=== PATIENT | male | born 1985 | race Caucasian/White ===

== ENCOUNTER → 2017-03-22 | Day surgery (SDC) | payer OTHER ==
[~2017-03-22] VITALS: Ht 175.3 cm; Wt 68.0 kg
[~2017-03-22] MED LIST: ACET325T9 PO; ALBU2.5V5 NEB; BUDE10.2 IH; BUPIVACAINE MPF 0.5% 30 ML VIAL. ONE; CETI10TA22 PO; DEXAMETHASONE SOD PHOS 20 MG/5 ML VIAL. ONE; FAMOTIDINE 20 MG/2 ML VIAL ONE; FLUT9.9S NS; HYDROCORTISONE SOD SUCC/PF 100 MG/2 ML VIAL. ONE; HYDROmorphone 2 MG/ML VIAL IV PRN; IV RINGERS,LACTATED 1000ML 1,000 ML IV SCH; LIDOCAINE 1% 20 ML VIAL. ONE; LIDOCAINE 1% PF 2 ML VIAL. ID PRN; LIDOCAINE 2% PF Vial for OR 5 ML VIAL. ONE; MELO15TA6 PO; MELOXICAM 7.5 MG TABLET PO PRN; MIDAZOLAM HCL/PF 2 MG/2 ML VIAL. ONE; MONT10TA9 PO; MORPHINE SULFATE 2 MG/ML DISP.SYRIN. IV PRN; ONDANSETRON PF 4 MG/2 ML VIAL. IV PRN; ONDANSETRON PF 4 MG/2 ML VIAL. ONE; PANT40TA5 PO; PRED-220 PO; PROAIR RESPICL90 MCG IH; PROCHLORPERAZINE 10 MG/2 ML VIAL. IV PRN; PROPOFOL 20 ML IV ONE; SEVOFLURANE 31 TO 60 MINUTES. IH ONE; TRET20CR13 TP; [UNRECOGNIZED DRUG - CODE] TP; fentaNYL PF VIAL 100 MCG/2 ML VIAL IV PRN; fentaNYL PF VIAL 100 MCG/2 ML VIAL ONE
--- NOTE | 2017-03-22 07:21 | DISCH ---
DISCHARGE INSTRUCTIONS Condition on Discharge Condition on Discharge: Stable Activity After Discharge Activity Instructions for Disc: Other, see below Other activity instructions: wiggle fingers Bathing Instructions: Shower-keep dressing dry Weight Bearing Status after Di: As tolerated Diet after Discharge Diet after Discharge: Regular Wound Incision Care Wound/Incision Care: Ice to area for comfort, Keep wound/cast CDI, Keep wound elevated Other wound/incision instructi: ok to change dressing after [address] after DC Call your doctor for: Concerns you may have Follow-Up Follow up with: [facility]ist in 2 days CHRISTIANO SOLORZANO II, MD Mar 22, 2017 07:21
--- NOTE | 2017-03-22 07:24 | PDOC4 ---
Operative Note Operative Note Date of surgery: 03/22/2017 Preoperative diagnosis: Painful hardware right hand after scaphoid fracture fixation Postoperative diagnosis: Same Procedure performed: Right hand hardware removal Surgeon: Tigist Anesthesia: Gen. Findings: Stable fracture. Complications: Next Blood loss: 2mL Tourniquet time: 17 min Reason for procedure: Patient is a 32-year-old gentleman who underwent scaphoid fracture fixation several months ago. His fracture pain had resolved. I felt that his fracture had united radiographically. We discussed removing the hardware which was causing him local symptoms. He wished to proceed. Next Description of procedure: Patient was greeted in the preoperative area by myself for the correct extremity was marked and verified. Taken back to the operative suite and his antibiotics were started and row. Once in the operating room, he was transferred gently supine to the OR table and secured the bed with all pressure points padded. Underwent successful induction of a general anesthetic. A nonsterile tourniquet was applied to his right upper extremity. We then proceeded to prep and drape right upper extremity in her usual sterile fashion and conducted our standard preoperative timeout. Esmarch was used to exsanguinate the extremity and tourniquet was insufflated to 250 mmHg. I brought in C-arm to localize the hardware which I was also able to palpate. I made a skin incision through his prior incision and dissected subcutaneous tissue with tenotomies until identified the ends of the hardware and remove these 3 pins, using a pliers. After this, irrigated out the operative field after taking my final C-arm images. I then closed skin with inverted interrupted 2-0 Vicryl followed by 3-0 nylon in a mattress fashion. I then injected 5 mL of local anesthetic mixture. After this, I applied Xeroform, plain gauze, soft roll and an Lamont wrap. Prior to accomplishing wound closure all counts correct 2 At the conclusion of the surgery was awakened from anesthesia, he was transferred gently supine to the recovery room cart and taken to PACU in a stable and extubated condition. Postoperative plan is to transfer him back to the skilled nursing facility. I discussed activity restrictions with him. He will follow up with me in 2 weeks for wound check. CHRISTIANO SOLORZANO II, MD Mar 22, 2017 07:24
[2017-03-22 08:40] VITALS: BP 122/80
== END | disposition home or self-care (01) ==
LOC: SURG 05:52
PROVIDERS: ATTEND Orthopaedic Surgery Sports Medicine
DX: T84.84XA Pain due to internal orthopedic prosthetic devices, implants and grafts, initial encounter (principal); X58.XXXA Exposure to other specified factors, initial encounter; J45.909 Unspecified asthma, uncomplicated; Z98.890 Other specified postprocedural states; Z87.891 Personal history of nicotine dependence; Z79.899 Other long term (current) drug therapy
CPT/HCPCS: 20680; 76000; J0690; J1100; J1720; J2250; J2405; J2704; J3010; J3490; S0028; J2001